=== PATIENT | male | born 1970 | race Caucasian/White ===

== ENCOUNTER 2017-10-28 08:43 | Emergency (ER) | payer MEDICAID ==
[~2017-10-28] VITALS: Ht 154.9 cm; Wt 96.8 kg
[~2017-10-28 08:43] MED LIST: ALBU8.5H8 IH; ATOR40TA28 PO; FURO40 PO; LOSA50TA25 PO; POTA25TA7 PO; SENN8.6T8 PO
[2017-10-28] MEDS ORDERED: AMLO-512 PO (08:48)
[2017-10-28] MEDS ORDERED: EZET10 PO (08:48)
[2017-10-28] MEDS ORDERED: ERGO2000 PO (08:48)
[2017-10-28] MEDS ORDERED: PRED15SO12 PO (08:48)
[2017-10-28 08:58] VITALS: BP 176/108
[2017-10-28 09:04] LABS: GLUCOSE,POINT OF CARE 84 MG/DL (70-110)
[2017-10-28] MEDS ORDERED: IBUPROFEN 600 MG TABLET PO ONE (09:15)
[2017-10-28] MEDS ORDERED: AmLODIPine BESYLATE 5 MG TABLET PO ONE (09:15)
[2017-10-28] MEDS ORDERED: LOSARTAN POTASSIUM 50 MG TABLET PO ONE (09:15)
[2017-10-28] MEDS ORDERED: HYDROCODONE/ACETAMINOPHEN 5-325 MG TABLET PO ONE (09:15)
== END 2017-10-28 09:32 | disposition home or self-care (01) ==
LOC: EMS 08:44
DX: K02.9 Dental caries, unspecified (principal); I10 Essential (primary) hypertension; E11.9 Type 2 diabetes mellitus without complications; H40.9 Unspecified glaucoma; E78.00 Pure hypercholesterolemia, unspecified; Z87.442 Personal history of urinary calculi; Z79.899 Other long term (current) drug therapy; Z79.84 Long term (current) use of oral hypoglycemic drugs; Z98.890 Other specified postprocedural states
CPT/HCPCS: 82948; 99284

== ENCOUNTER 2018-03-26 04:21 | Inpatient (IN) | payer MEDICAID ==
[~2018-03-26] VITALS: Ht 154.9 cm; Wt 93.6 kg
[~2018-03-26 04:21] MED LIST changes: +AMLO-512 PO; +ERGO2000 PO; +EZET10 PO; -LOSA50TA25 PO; +PRED15SO12 PO
[2018-03-26] MEDS ORDERED: METO2.5T2 PO (04:30)
[2018-03-26] MEDS ORDERED: LOSA50TA64 PO (04:30)
[2018-03-26] MEDS ORDERED: SEVE800 PO (04:30)
[2018-03-26] MEDS ORDERED: KDUR10 PO (04:30)
[2018-03-26] MEDS ORDERED: PRED-284 PO (04:32)
[2018-03-26] MEDS ORDERED: FUROSEMIDE 40 MG/4 ML VIAL IVP ONE (05:45)
[2018-03-26 06:05] LABS: BASOPHILS % (AUTO) 0.3 % (0.0-2.0); EOSINOPHILS % (AUTO) 1.3 % (1.0-6.0); HEMATOCRIT 41.3 % (41-53); HEMOGLOBIN 13.8 g/dL (13.5-17.5); LYMPHOCYTES # (AUTO) 1.8 K/uL (1.0-4.8); LYMPHOCYTES % (AUTO) 12.8 % (22.0-44.0); MEAN CORPUSCULAR HEMOGLOBIN 27.1 pg (26.0-34.0); MEAN CORPUSCULAR HGB CONC 33.4 G/dL (31.0-37.0); MEAN CORPUSCULAR VOLUME 81 fL (80-100); MONOCYTES # (AUTO) 1.2 K/uL (0.1-1.0); MONOCYTES % (AUTO) 8.2 % (2.0-9.0); NEUTROPHILS # (AUTO) 11.2 K/uL (1.8-7.7); NEUTROPHILS % (AUTO) 77.4 % (40.0-70.0); PLATELET COUNT (AUTO) 244 K/uL (150-450); RED BLOOD CELL COUNT(AUTO) 5.09 MIL/uL (4.50-5.90); RED CELL DISTRIBUTION WIDTH 14.8 % (11.5-14.5)
[2018-03-26 07:08] LABS: ALBUMIN 1.9 g/dL (3.4-5.0); BILIRUBIN,TOTAL 0.2 mg/dL (0.1-1.0); CALCIUM, TOTAL 7.8 mg/dL (8.8-10.5); CREATININE 2.95 mg/dL (0.60-1.30); POTASSIUM 3.6 mmol/L (3.5-5.1); TOTAL PROTEIN, SERUM 4.7 g/dL (6.4-8.2)
[2018-03-26 08:43] LABS: APPEARANCE,URINE CLEAR (CLEAR); BILIRUBIN,URINE NEGATIVE (NEGATIVE); GLUCOSE, URINE (UA) NEGATIVE (NEGATIVE); KETONES,URINE NEGATIVE (NEGATIVE); LEUKOCYTE ESTERASE ,URINE NEGATIVE (NEGATIVE); NITRATE,URINE NEGATIVE (NEGATIVE); OCCULT BLOOD,URINE TRACE (NEGATIVE); PROTEIN,URINE SEE CONFIRM (NEGATIVE); UROBILINOGEN,URINE 0.2 mg/dL (<=1.0)
[2018-03-26 09:02] LABS: BACTERIA,URINE None Seen /HPF (None Seen); HYALINE CASTS, URINE 0-2 /LPF (None Seen); RBC,URINE 0-2 /HPF (0-2); SULFOSALICYLIC ACID,URINE 2+ (Negative); WBC,URINE None Seen /HPF (0-5)
[2018-03-26] MEDS ORDERED: HYDROCODONE/ACETAMINOPHEN 5-325 MG TABLET PO PRN (11:00)
[2018-03-26] MEDS ORDERED: ZOLPIDEM TARTRATE 5 MG TABLET PO PRN (11:00)
[2018-03-26] MEDS ORDERED: MORPHINE SULFATE 2 MG/ML SYRINGE IVP PRN (11:00)
[2018-03-26] MEDS ORDERED: BISACODYL 10 MG RECTAL RECTAL SUPPOSITORY PR PRN (11:00)
[2018-03-26] MEDS ORDERED: MAGNESIUM HYDROXIDE SUSPENSION 30 ML UDCUP PO PRN (11:00)
[2018-03-26] MEDS ORDERED: ONDANSETRON HCL 4 MG/2 ML VIAL IVP PRN (11:00)
[2018-03-26] MEDS ORDERED: ACETAMINOPHEN 325 MG TABLET PO PRN (11:00)
[2018-03-26 13:54] VITALS: BP 147/76
[2018-03-26] MEDS ORDERED: ALBUTEROL SULFATE HFA 90 MCG/PUFF 8 GM INHALER IH PRN (15:30)
[2018-03-26] MEDS ORDERED: METOLAZONE 2.5 MG TABLET PO PRN (15:30)
[2018-03-26] MEDS: HEPARIN SODIUM,PORCINE 5,000 UNITS/ML VIAL SQ SCH ×2 (15:34→23:54)
[2018-03-26 16:56] VITALS: BP_SYST 158; BP_SYST 164; BP_DIAS 101; BP_DIAS 90
[2018-03-26 17:50] VITALS: BP 154/94
[2018-03-26 19:38] VITALS: BP 150/92
[2018-03-26 20:09] VITALS: BP 149/84
[2018-03-26 20:14] VITALS: BP 149/84
[2018-03-26] MEDS: FAMOTIDINE 20 MG TABLET PO SCH (21:03)
[2018-03-26] MEDS: DOCUSATE SODIUM 100 MG CAPSULE PO SCH (21:03)
[2018-03-27] VITALS (7 sets, daily range): BP systolic 140–161; BP diastolic 80–94
[2018-03-27 05:52] LABS: CREATININE 3.08 mg/dL (0.60-1.30); MAGNESIUM 1.7 mg/dL (1.80-2.40); PHOSPHORUS 5.5 mg/dL (2.5-4.9); POTASSIUM 3.5 mmol/L (3.5-5.1)
[2018-03-27] MEDS: EZETIMIBE 10 MG TABLET PO SCH (08:22)
[2018-03-27] MEDS: AmLODIPine BESYLATE 10 MG TABLET PO SCH (08:22)
[2018-03-27] MEDS: DOCUSATE SODIUM 100 MG CAPSULE PO SCH ×2 (08:22→20:46)
[2018-03-27] MEDS: ATORVASTATIN CALCIUM 40 MG TABLET PO SCH (08:22)
[2018-03-27] MEDS: POTASSIUM CHLORIDE 10 MEQ ER TABLET PO SCH (08:22)
[2018-03-27] MEDS: HEPARIN SODIUM,PORCINE 5,000 UNITS/ML VIAL SQ SCH ×3 (08:22→23:47)
[2018-03-27] MEDS: FAMOTIDINE 20 MG TABLET PO SCH ×2 (08:22→20:46)
[2018-03-27] MEDS: FUROSEMIDE 40 MG/4 ML VIAL IVP SCH ×2 (09:44→20:46)
[2018-03-27 20:23] LABS: CREATININE,SERUM FOR CRCL 3.08 mg/dL (0.60-1.30)
[2018-03-27 20:42] LABS: CREATININE,URINE 38.7 mg/dL (30.0-125.0)
[2018-03-28 04:40] VITALS: BP 176/105
[2018-03-28] MEDS: HydrALAZINE HCL 20 MG/ML VIAL IVP PRN (05:05)
[2018-03-28 05:56] VITALS: BP 137/90
[2018-03-28 08:00] VITALS: BP 136/100
[2018-03-28] MEDS: POTASSIUM CHLORIDE 10 MEQ ER TABLET PO SCH (08:25)
[2018-03-28] MEDS: FAMOTIDINE 20 MG TABLET PO SCH ×2 (08:25→20:50)
[2018-03-28] MEDS: EZETIMIBE 10 MG TABLET PO SCH (08:25)
[2018-03-28] MEDS: AmLODIPine BESYLATE 10 MG TABLET PO SCH (08:25)
[2018-03-28] MEDS: DOCUSATE SODIUM 100 MG CAPSULE PO SCH ×2 (08:25→20:50)
[2018-03-28] MEDS: ATORVASTATIN CALCIUM 40 MG TABLET PO SCH (08:25)
[2018-03-28] MEDS: HEPARIN SODIUM,PORCINE 5,000 UNITS/ML VIAL SQ SCH ×3 (08:26→23:19)
[2018-03-28] MEDS: FUROSEMIDE 40 MG/4 ML VIAL IVP SCH ×2 (08:26→20:50)
[2018-03-28 10:09] LABS: BASOPHILS % (AUTO) 0.5 % (0.0-2.0); EOSINOPHILS % (AUTO) 3.9 % (1.0-6.0); HEMATOCRIT 40.9 % (41-53); HEMOGLOBIN 13.3 g/dL (13.5-17.5); LYMPHOCYTES # (AUTO) 1.3 K/uL (1.0-4.8); LYMPHOCYTES % (AUTO) 12.6 % (22.0-44.0); MEAN CORPUSCULAR HEMOGLOBIN 26.2 pg (26.0-34.0); MEAN CORPUSCULAR HGB CONC 32.5 G/dL (31.0-37.0); MEAN CORPUSCULAR VOLUME 80 fL (80-100); MONOCYTES # (AUTO) 0.7 K/uL (0.1-1.0); MONOCYTES % (AUTO) 7.1 % (2.0-9.0); NEUTROPHILS # (AUTO) 7.6 K/uL (1.8-7.7); NEUTROPHILS % (AUTO) 75.9 % (40.0-70.0); PLATELET COUNT (AUTO) 189 K/uL (150-450); RED BLOOD CELL COUNT(AUTO) 5.09 MIL/uL (4.50-5.90)
[2018-03-28 10:20] LABS: CALCIUM, TOTAL 8.2 mg/dL (8.8-10.5); CREATININE 2.89 mg/dL (0.60-1.30); MAGNESIUM 1.7 mg/dL (1.80-2.40); POTASSIUM 3.1 mmol/L (3.5-5.1)
[2018-03-28 11:15] VITALS: BP 150/93
[2018-03-28 15:30] VITALS: BP 150/100
[2018-03-28] MEDS ORDERED: POTASSIUM CHLORIDE 20 MEQ ER TABLET PO ONE (17:30)
[2018-03-28] MEDS ORDERED: SODIUM CHLORIDE 0.9% 500 ML IV ONE ×3 (17:32→20:45)
[2018-03-28] MEDS: POTASSIUM CHL 10 MEQ/WATER 50 ML IV SCH ×2 (17:35→18:39)
[2018-03-28 20:28] VITALS: BP 153/99
[2018-03-29] VITALS (7 sets, daily range): BP systolic 147–175; BP diastolic 95–110
[2018-03-29 06:36] LABS: BASOPHILS % (AUTO) 0.7 % (0.0-2.0); EOSINOPHILS % (AUTO) 5.3 % (1.0-6.0); HEMATOCRIT 38.8 % (41-53); HEMOGLOBIN 12.7 g/dL (13.5-17.5); LYMPHOCYTES # (AUTO) 1.4 K/uL (1.0-4.8); LYMPHOCYTES % (AUTO) 15.1 % (22.0-44.0); MEAN CORPUSCULAR HEMOGLOBIN 26.1 pg (26.0-34.0); MEAN CORPUSCULAR HGB CONC 32.8 G/dL (31.0-37.0); MEAN CORPUSCULAR VOLUME 80 fL (80-100); MONOCYTES # (AUTO) 0.7 K/uL (0.1-1.0); MONOCYTES % (AUTO) 8.2 % (2.0-9.0); NEUTROPHILS # (AUTO) 6.3 K/uL (1.8-7.7); NEUTROPHILS % (AUTO) 70.7 % (40.0-70.0); PLATELET COUNT (AUTO) 187 K/uL (150-450); RED BLOOD CELL COUNT(AUTO) 4.88 MIL/uL (4.50-5.90); RED CELL DISTRIBUTION WIDTH 14.9 % (11.5-14.5)
[2018-03-29 06:41] LABS: CALCIUM, TOTAL 8.5 mg/dL (8.8-10.5); CREATININE 3.11 mg/dL (0.60-1.30); MAGNESIUM 1.7 mg/dL (1.80-2.40); POTASSIUM 3.3 mmol/L (3.5-5.1)
[2018-03-29] MEDS: EZETIMIBE 10 MG TABLET PO SCH (08:20)
[2018-03-29] MEDS: FAMOTIDINE 20 MG TABLET PO SCH ×2 (08:20→20:45)
[2018-03-29] MEDS: DOCUSATE SODIUM 100 MG CAPSULE PO SCH ×2 (08:20→20:44)
[2018-03-29] MEDS: AmLODIPine BESYLATE 10 MG TABLET PO SCH (08:20)
[2018-03-29] MEDS: HEPARIN SODIUM,PORCINE 5,000 UNITS/ML VIAL SQ SCH ×2 (08:20→17:21)
[2018-03-29] MEDS: ATORVASTATIN CALCIUM 40 MG TABLET PO SCH (08:20)
[2018-03-29] MEDS: POTASSIUM CHLORIDE 10 MEQ ER TABLET PO SCH (08:20)
[2018-03-29] MEDS ORDERED: POTASSIUM CHLORIDE 10 MEQ ER TABLET PO ONE (10:00)
[2018-03-29] MEDS: HydrALAZINE HCL 20 MG/ML VIAL IVP PRN (12:05)
[2018-03-29 17:17] LABS: CALCIUM, TOTAL 8.6 mg/dL (8.8-10.5); CREATININE 3.16 mg/dL (0.60-1.30); POTASSIUM 3.7 mmol/L (3.5-5.1)
[2018-03-29] MEDS: CARVEDILOL 3.125 MG TABLET PO SCH (20:44)
[2018-03-30] MEDS: HEPARIN SODIUM,PORCINE 5,000 UNITS/ML VIAL SQ SCH ×4 (00:48→23:16)
[2018-03-30 01:15] VITALS: BP 158/99
[2018-03-30 05:01] VITALS: BP 167/91
[2018-03-30 06:09] LABS: CALCIUM, TOTAL 8.6 mg/dL (8.8-10.5); CREATININE 3.67 mg/dL (0.60-1.30); MAGNESIUM 1.8 mg/dL (1.80-2.40); PHOSPHORUS 4.6 mg/dL (2.5-4.9); POTASSIUM 4.3 mmol/L (3.5-5.1)
[2018-03-30] MEDS: AmLODIPine BESYLATE 10 MG TABLET PO SCH (06:12)
[2018-03-30 08:08] VITALS: BP 141/83
[2018-03-30] MEDS: FAMOTIDINE 20 MG TABLET PO SCH ×2 (08:10→20:23)
[2018-03-30] MEDS: DOCUSATE SODIUM 100 MG CAPSULE PO SCH ×2 (08:10→20:22)
[2018-03-30] MEDS: EZETIMIBE 10 MG TABLET PO SCH (08:10)
[2018-03-30] MEDS: ATORVASTATIN CALCIUM 40 MG TABLET PO SCH (08:10)
[2018-03-30] MEDS: CARVEDILOL 3.125 MG TABLET PO SCH ×2 (08:10→20:23)
[2018-03-30] MEDS: ALBUMIN HUMAN 25%-25GM/100ML 100 ML IV SCH ×3 (11:34→23:16)
[2018-03-30] MEDS: DEXTROSE 5%-WATER 1,000 ML IV SCH (11:35)
[2018-03-30 11:49] VITALS: BP 141/90
[2018-03-30 15:40] VITALS: BP 147/95
[2018-03-30 18:26] LABS: CREATININE 3.66 mg/dL (0.60-1.30)
[2018-03-30 20:08] VITALS: BP 140/86
[2018-03-31] VITALS (7 sets, daily range): BP systolic 131–157; BP diastolic 83–104
[2018-03-31] MEDS: ALBUMIN HUMAN 25%-25GM/100ML 100 ML IV SCH ×4 (04:04→22:55)
[2018-03-31 06:46] LABS: CALCIUM, TOTAL 8.3 mg/dL (8.8-10.5); CREATININE 3.76 mg/dL (0.60-1.30); MAGNESIUM 1.9 mg/dL (1.80-2.40); PHOSPHORUS 4.2 mg/dL (2.5-4.9); POTASSIUM 3.4 mmol/L (3.5-5.1)
[2018-03-31] MEDS: DOCUSATE SODIUM 100 MG CAPSULE PO SCH ×2 (08:08→20:05)
[2018-03-31] MEDS: CARVEDILOL 3.125 MG TABLET PO SCH ×2 (08:08→20:05)
[2018-03-31] MEDS: EZETIMIBE 10 MG TABLET PO SCH (08:08)
[2018-03-31] MEDS: ATORVASTATIN CALCIUM 40 MG TABLET PO SCH (08:08)
[2018-03-31] MEDS: FAMOTIDINE 20 MG TABLET PO SCH ×2 (08:08→20:05)
[2018-03-31] MEDS: AmLODIPine BESYLATE 10 MG TABLET PO SCH (08:08)
[2018-03-31] MEDS: HEPARIN SODIUM,PORCINE 5,000 UNITS/ML VIAL SQ SCH ×3 (08:09→22:55)
[2018-03-31] MEDS: PredniSONE 20 MG TABLET PO SCH (08:10)
[2018-03-31] MEDS ORDERED: POTASSIUM CHLORIDE 10 MEQ ER TABLET PO ONE (09:00)
[2018-03-31] MEDS: DEXTROSE 5%-WATER 1,000 ML IV SCH (09:52)
[2018-03-31 17:07] LABS: CREATININE 3.9 mg/dL (0.60-1.30)
[2018-04-01] MEDS: ALBUMIN HUMAN 25%-25GM/100ML 100 ML IV SCH ×4 (04:49→23:52)
[2018-04-01 04:50] VITALS: BP 150/104
[2018-04-01] MEDS: DEXTROSE 5%-WATER 1,000 ML IV SCH (04:50)
[2018-04-01 07:05] LABS: CALCIUM, TOTAL 8.3 mg/dL (8.8-10.5); CREATININE 4.05 mg/dL (0.60-1.30); PHOSPHORUS 4.8 mg/dL (2.5-4.9); POTASSIUM 3.1 mmol/L (3.5-5.1)
[2018-04-01 07:15] VITALS: BP 142/101
[2018-04-01] MEDS: EZETIMIBE 10 MG TABLET PO SCH (07:48)
[2018-04-01] MEDS: PredniSONE 20 MG TABLET PO SCH (07:48)
[2018-04-01] MEDS: AmLODIPine BESYLATE 10 MG TABLET PO SCH (07:48)
[2018-04-01] MEDS: CARVEDILOL 3.125 MG TABLET PO SCH ×2 (07:48→20:10)
[2018-04-01] MEDS: ATORVASTATIN CALCIUM 40 MG TABLET PO SCH (07:48)
[2018-04-01] MEDS: FAMOTIDINE 20 MG TABLET PO SCH ×2 (07:50→20:09)
[2018-04-01] MEDS: DOCUSATE SODIUM 100 MG CAPSULE PO SCH ×2 (07:50→20:09)
[2018-04-01] MEDS: HEPARIN SODIUM,PORCINE 5,000 UNITS/ML VIAL SQ SCH ×3 (07:55→23:52)
[2018-04-01] MEDS: POTASSIUM CHL 10 MEQ/WATER 50 ML IV SCH ×2 (09:54→11:19)
[2018-04-01 11:10] VITALS: BP 139/96
[2018-04-01] MEDS: HydrALAZINE HCL 25 MG TABLET PO SCH ×3 (12:08→23:52)
[2018-04-01 15:10] VITALS: BP 143/85
[2018-04-01 18:02] LABS: CALCIUM, TOTAL 8.6 mg/dL (8.8-10.5); CREATININE 4.3 mg/dL (0.60-1.30); PHOSPHORUS 4.2 mg/dL (2.5-4.9); POTASSIUM 4.3 mmol/L (3.5-5.1)
[2018-04-01 20:07] VITALS: BP 148/98
[2018-04-01 23:30] VITALS: BP 147/90
[2018-04-02 04:22] VITALS: BP 145/74
[2018-04-02] MEDS: DEXTROSE 5%-WATER 1,000 ML IV SCH ×2 (04:24→18:01)
[2018-04-02] MEDS: ALBUMIN HUMAN 25%-25GM/100ML 100 ML IV SCH ×4 (04:25→23:22)
[2018-04-02 06:29] LABS: CALCIUM, TOTAL 8.4 mg/dL (8.8-10.5); CREATININE 4.53 mg/dL (0.60-1.30); MAGNESIUM 2.1 mg/dL (1.80-2.40); POTASSIUM 3.6 mmol/L (3.5-5.1)
[2018-04-02] MEDS: PredniSONE 20 MG TABLET PO SCH (07:59)
[2018-04-02] MEDS: HydrALAZINE HCL 25 MG TABLET PO SCH (07:59)
[2018-04-02] MEDS: ATORVASTATIN CALCIUM 40 MG TABLET PO SCH (07:59)
[2018-04-02] MEDS: AmLODIPine BESYLATE 10 MG TABLET PO SCH (07:59)
[2018-04-02] MEDS: DOCUSATE SODIUM 100 MG CAPSULE PO SCH ×2 (07:59→19:52)
[2018-04-02] MEDS: FAMOTIDINE 20 MG TABLET PO SCH ×2 (07:59→19:52)
[2018-04-02] MEDS: CARVEDILOL 3.125 MG TABLET PO SCH ×2 (07:59→19:52)
[2018-04-02] MEDS: HEPARIN SODIUM,PORCINE 5,000 UNITS/ML VIAL SQ SCH ×3 (07:59→23:21)
[2018-04-02] MEDS: EZETIMIBE 10 MG TABLET PO SCH (08:00)
[2018-04-02 08:02] VITALS: BP 154/105
[2018-04-02 11:34] VITALS: BP 149/100
[2018-04-02] MEDS: HydrALAZINE HCL 50 MG TABLET PO SCH ×2 (15:22→23:27)
[2018-04-02 15:39] VITALS: BP 159/99
[2018-04-02 19:21] VITALS: BP 142/88
[2018-04-02 20:06] LABS: CALCIUM, TOTAL 8.3 mg/dL (8.8-10.5); CREATININE 4.69 mg/dL (0.60-1.30); POTASSIUM 4.2 mmol/L (3.5-5.1)
[2018-04-02 23:18] VITALS: BP 153/78
[2018-04-03] MEDS: ALBUMIN HUMAN 25%-25GM/100ML 100 ML IV SCH ×3 (04:36→17:09)
[2018-04-03 04:44] VITALS: BP 145/96
[2018-04-03 07:50] VITALS: BP 159/100
[2018-04-03] MEDS: CARVEDILOL 3.125 MG TABLET PO SCH ×2 (08:14→20:43)
[2018-04-03] MEDS: ATORVASTATIN CALCIUM 40 MG TABLET PO SCH (08:14)
[2018-04-03] MEDS: DOCUSATE SODIUM 100 MG CAPSULE PO SCH ×2 (08:14→20:43)
[2018-04-03] MEDS: FAMOTIDINE 20 MG TABLET PO SCH ×2 (08:14→20:43)
[2018-04-03] MEDS: PredniSONE 20 MG TABLET PO SCH (08:14)
[2018-04-03] MEDS: AmLODIPine BESYLATE 10 MG TABLET PO SCH (08:14)
[2018-04-03] MEDS: HEPARIN SODIUM,PORCINE 5,000 UNITS/ML VIAL SQ SCH ×2 (08:14→16:11)
[2018-04-03] MEDS: EZETIMIBE 10 MG TABLET PO SCH (08:15)
[2018-04-03] MEDS: HydrALAZINE HCL 50 MG TABLET PO SCH ×2 (08:16→16:12)
[2018-04-03 09:19] LABS: CALCIUM, TOTAL 8.5 mg/dL (8.8-10.5); CREATININE 4.51 mg/dL (0.60-1.30); POTASSIUM 3.1 mmol/L (3.5-5.1)
[2018-04-03 09:22] LABS: MAGNESIUM 1.8 mg/dL (1.80-2.40); PHOSPHORUS 4.4 mg/dL (2.5-4.9)
[2018-04-03 11:33] VITALS: BP 139/99
[2018-04-03] MEDS ORDERED: POTASSIUM CHLORIDE 20 MEQ ER TABLET PO ONE (14:00)
[2018-04-03 16:05] VITALS: BP_SYST 124; BP_SYST 138; BP_DIAS 69; BP_DIAS 88
[2018-04-03] MEDS: DEXTROSE 5%-WATER 1,000 ML IV SCH (17:08)
[2018-04-03 17:49] LABS: CREATININE 4.96 mg/dL (0.60-1.30)
[2018-04-03 19:30] VITALS: BP 145/84
[2018-04-03 23:20] VITALS: BP 148/85
[2018-04-04] MEDS: ALBUMIN HUMAN 25%-25GM/100ML 100 ML IV SCH ×3 (00:17→11:42)
[2018-04-04] MEDS: HydrALAZINE HCL 50 MG TABLET PO SCH ×2 (00:17→08:47)
[2018-04-04] MEDS: HEPARIN SODIUM,PORCINE 5,000 UNITS/ML VIAL SQ SCH ×2 (00:17→08:19)
[2018-04-04 03:30] VITALS: BP 141/82
[2018-04-04 07:19] VITALS: BP 150/78
[2018-04-04 07:51] LABS: CALCIUM, TOTAL 8.5 mg/dL (8.8-10.5); CREATININE 5.07 mg/dL (0.60-1.30); PHOSPHORUS 5.2 mg/dL (2.5-4.9); POTASSIUM 3.5 mmol/L (3.5-5.1)
[2018-04-04] MEDS: PredniSONE 20 MG TABLET PO SCH (08:46)
[2018-04-04] MEDS: ATORVASTATIN CALCIUM 40 MG TABLET PO SCH (08:46)
[2018-04-04] MEDS: FAMOTIDINE 20 MG TABLET PO SCH (08:46)
[2018-04-04] MEDS: AmLODIPine BESYLATE 10 MG TABLET PO SCH (08:46)
[2018-04-04] MEDS: CARVEDILOL 3.125 MG TABLET PO SCH (08:46)
[2018-04-04] MEDS: DOCUSATE SODIUM 100 MG CAPSULE PO SCH (08:46)
[2018-04-04] MEDS: EZETIMIBE 10 MG TABLET PO SCH (08:47)
[2018-04-04 12:29] VITALS: BP 149/89
[2018-04-04 15:23] VITALS: BP 133/77
[2018-04-04 16:25] LABS: CREATININE 5.02 mg/dL (0.60-1.30)
== END 2018-04-04 17:05 | disposition left against medical advice (07) | DRG 462 ==
LOC: EMS 04:22 → AHU 12:31 → 4E 18:17 → 6N 04-04 16:50
PROVIDERS: ADMIT Internal Medicine; ATTEND Internal Medicine
DX: N04.2 Nephrotic syndrome with diffuse membranous glomerulonephritis (principal); E11.22 Type 2 diabetes mellitus with diabetic chronic kidney disease; E44.0 Moderate protein-calorie malnutrition; Z68.41 Body mass index [BMI] 40.0-44.9, adult; N18.9 Chronic kidney disease, unspecified; E78.00 Pure hypercholesterolemia, unspecified; E78.5 Hyperlipidemia, unspecified; E87.6 Hypokalemia; H40.9 Unspecified glaucoma; J45.909 Unspecified asthma, uncomplicated; E66.3 Overweight; Z53.21 Procedure and treatment not carried out due to patient leaving prior to being seen by health care provider; Z79.899 Other long term (current) drug therapy; Z87.441 Personal history of nephrotic syndrome; Z87.442 Personal history of urinary calculi; Z91.19 Patient's noncompliance with other medical treatment and regimen
CPT/HCPCS: 76770; 81050; 82565; 82575; 83735; 84100; 84156; 84300; 84520; 93005; 96374; J0360; J1644; J1940; J3480; J7040; J7060; P9046